=== PATIENT | female | born 1965 | race Caucasian/White ===

== ENCOUNTER 2019-03-03 11:44 | Day surgery (SDC) | payer OTHER ==
[~2019-03-03] VITALS: Ht 157.5 cm; Wt 76.9 kg
[~2019-03-03 11:44] MED LIST: ATORVASTATIN; BASAGLAR; BENAZEPRIL; METOPROLOL; VITAMIN D2; [UNRECOGNIZED DRUG - OTHER]
[2019-03-03 13:19] VITALS: Ht 157.5 cm; Wt 76.9 kg
--- NOTE | 2019-03-03 13:21 | PREAC ---
Date/Time of Note Date/Time of Note DATE: 03/03/19 TIME: 13:12 Anesthesia Eval and Record Evaluation Time Pre-Procedure Interview DATE: 03/03/19 TIME: 13:12 Age 53 Sex female NPO: 8 hrs Preoperative diagnosis screening Planned procedure colonoscopy Past Medical History Past Medical History: Includes (occlusion/stenosis of bilateral carotid arteries) Cardio: HTN, Other (mitral valve prolapse; tachycardia) Endo: Diabetes Surgery & Anesthesia Issues No known issue (hysterectomy, cholecystectomy) Meds Anticoagulation: No Beta Lucy within 24 hr: Yes Reported Medications [Basaglar] No Conflict Check 03/03/19 [Nitroglycerin Prn] No Conflict Check 03/03/19 [Vitamin D2] No Conflict Check 03/03/19 [Atorvastatin] No Conflict Check 03/03/19 [Metoprolol] No Conflict Check 03/03/19 [Benazepril] No Conflict Check 03/03/19 Meds reviewed: Yes Allergies Coded Allergies: Fish Containing Products (Verified Allergy, Unknown, 03/03/19) Allergies Reviewed: Yes Labs/Studies Labs Reviewed: Reviewed by anesthesiologist test: N/A Studies: ECG (SR; normal variant of ECG), Stress test (pt saw manager food safety last month and had ECHO/stress test done and reported negative/normal findings), Other (bilateral carotid study report = <20% stenosis) Pre-procedure Exam Airway: Adequate mouth opening, Adequate thyromental dist Mallampati: Mallampati II Teeth: Abnormal (edentulous; pt will remove upper dentures) Lung: Normal Heart: Normal ASA Physical Status ASA physical status: 3 Emergency: None Planned Anesthetic General/MAC: MAC Pre-operative Attestations Prior to commencing anesthesia and surgery, the patient was re-evaluated, there was verification of: *The patient's identity *The results of appropriate recent lab work and preoperative vital signs *The above evaluation not changing prior to induction *Anesthetic plan, risk benefits, alternative and complications discussed with patient/family; questions answered; patient/family understands, accepts and wishes to proceed. WILL VELA MD Mar 03, 2019 13:21
[2019-03-03] MEDS ORDERED: NITROGLYCERIN 2% 1 GM OINT PKT TD ONE (13:30)
[2019-03-03] MEDS ORDERED: CEFAZOLIN 1 GM/50 ML (PMX) 50 ML IVPB ONE (13:31)
[2019-03-03 13:32] VITALS: BP 147/74; PULSE 91; RESP 16
[2019-03-03] MEDS ORDERED: PROPOFOL 60 ML ONE (13:55)
--- NOTE | 2019-03-03 13:56 | PAC ---
Date/Time of Note Date/Time of Note DATE: 03/03/19 TIME: 13:56 Post-Anesthesia Notes Post-Anesthesia Note Last documented vital signs T: 98.1 Activity: WNL Respiratory function: WNL Cardiovascular function: WNL Mental status: Baseline Pain reasonably controlled: Yes Hydration appropriate: Yes Nausea/Vomiting absent: Yes WILL VELA MD Mar 03, 2019 13:56
[2019-03-03 14:18] VITALS: BP 130/72; PULSE 92; RESP 16
== END 2019-03-03 15:08 | disposition home or self-care (01) ==
LOC: GIL 11:44
PROVIDERS: ATTEND Internal Medicine
DX: Z12.11 Encounter for screening for malignant neoplasm of colon (principal); E11.9 Type 2 diabetes mellitus without complications; I10 Essential (primary) hypertension
CPT/HCPCS: 45378; 82962; J0690; Z7610